=== PATIENT | male | born 1955 | race Caucasian/White ===

== ENCOUNTER 2016-07-26 07:14 | Day surgery (SDC) | payer OTHER ==
[~2016-07-26] VITALS: Ht 177.8 cm; Wt 78.8 kg
[2016-07-26] VITALS (10 sets, daily range): BP systolic 80–134; BP diastolic 44–92; PULSE 56–85; RESP 16–26; Ht 177.8 cm; Wt 78.8 kg
[~2016-07-26 07:14] MED LIST: GLYCOPYRROLATE 0.4 MG INJ ONE; NEOSTIGMINE 3 MG/3 ML SYRINGE ONE
[2016-07-26] MEDS ORDERED: CEFAZOLIN 2 GM/50 ML (PMX) 50 ML IVPB SCH (07:30)
[2016-07-26] MEDS ORDERED: SOD CHLORIDE 0.9% 1,000 ML IV SCH (07:30)
[2016-07-26] MEDS ORDERED: POLYMYXIN/BACITRACIN 1L IRRIG ONE (08:47)
[2016-07-26] MEDS ORDERED: BUPIVACAINE 0.25% (MPF) 30 ML INJ ONE (08:47)
--- NOTE | 2016-07-26 09:33 | RADRPT ---
PROCEDURE: XR Chest. CLINICAL INDICATION: Preoperative chest TECHNIQUE: Chest AP portable. COMPARISON: No comparison available. FINDINGS: The mediastinal structures are unremarkable. The heart is normal in size and configuration. The pu lmonary vascularity is normal. The lung darling are unremarkable. No consolidation is identified. The pleural spaces are unremarkable. The axial skeleton is unremarkable. IMPRESSION: No active intrathoracic disease. RPTAT: [facility] .Gregorio Kahn MD, MD Date Time Electronically viewed and signed by .Gregorio Kahn MD, MD on 07/26/2016 09:33 .B/
[2016-07-26] MEDS ORDERED: FENTAnyl 50 MCG/ML VIAL ONE (09:37)
[2016-07-26] MEDS ORDERED: CEFAZOLIN 1 GM INJ ONE (09:59)
[2016-07-26] MEDS ORDERED: SUCCINYLCHOLINE CHLORIDE 100 MG/5 ML SYG IV ONE (09:59)
[2016-07-26] MEDS ORDERED: LIDOCAINE 2% (SDV) 5 ML INJ ONE (09:59)
[2016-07-26] MEDS ORDERED: PROPOFOL 40 ML ONE (09:59)
[2016-07-26] MEDS ORDERED: ROCURONIUM 50 MG INJ ONE (09:59)
[2016-07-26] MEDS ORDERED: MEPERIDINE 25 MG INJ IV PRN (10:30)
[2016-07-26] MEDS ORDERED: FENTAnyl 50 MCG/ML VIAL IV PRN (10:30)
[2016-07-26] MEDS ORDERED: ONDANSETRON 4 MG INJ IV PRN (10:30)
[2016-07-26] MEDS ORDERED: HYDROmorphONE (0.2 MG/ML) 10ML SYG IV PRN ×3 (10:30)
[2016-07-26] MEDS ORDERED: DIPHENHYDRAMINE 50 MG INJ IV PRN (10:30)
[2016-07-26] MEDS ORDERED: ROPIVACAINE 0.5 % 30 ML VIAL ONE (11:05)
[2016-07-26] MEDS ORDERED: HYDROCODONE/APAP (5/325) TAB PO ONE (11:30)
--- NOTE | 2016-07-26 12:25 | OPR ---
DATE OF OPERATION: 07/26/2016 INDICATION: This is a 60-year-old male with a recurrent right inguinal hernia. He requests surgica l repair. Risks, alternatives, benefits, and personnel were discussed with the patient. The patien t expressed his understanding, and consents to the operation. PREOPERATIVE DIAGNOSIS: Recurrent right inguinal hernia. POSTOPERATIVE DIAGNOSIS: Recurrent incarcerated right inguinal hernia and right hydrocele. OPERATION: Open recurrent incarcerated right inguinal hernia repair with large size Ultrapro hernia system mesh and hydrocelectomy. SURGEON: Gwen Luevano MD SPECIMEN: Frozen right groin tissue. COMPLICATIONS: None. ANESTHESIA: General. DESCRIPTION OF PROCEDURE: The patient was taken to the OR, prepped and draped in the usual sterile fashion. Surgical time out was performed. IV antibiotics were given. Right inguinal oblique incis ion was made with a 10 blade. Dissection cautery was carried down to the external oblique fascia wh ich was opened with a 15 blade. This incision is extended medial inferiorly and lateral superiorly with a Metzenbaum scissors. Cord structures were identified and encircled with a [place] drain. Th ere was a large incarcerated hernia in the right groin. This was reduced into the indirect space. Additionally, the right testicle was examined, looked enlarged. A 22-gauge needle was aspirated and there appeared to be serous fluid. The hydrocele was then first excised by making small grasps of the hydrocele with the hemostats and cutting concurrently all the way down. Serous fluid was aspira malka. The hydrocele sac was then sent for specimen. The hydrocele sac was then marsupialized with i nterrupted 3-0 Vicryl. Some of the tissues appeared very hardened and inflammatory. There was some concern for malignancy. This was sent for frozen which showed that there was only benign reactive tissue. The disk portion of the Ultrapro hernia system mesh was secured to reduce indirect hernia i n place with a running 0 Prolene from the pubic tubercle along the shelving edge of the inguinal lig ament and superiorly to the internal oblique with interrupted 3-0 Vicryl. [place] mesh was also secur ed in a similar fashion from the pubic tubercle along the shelving edge of the inguinal ligament. S traps are created and reapproximated with interrupted 0 Prolene to recreate the inguinal ring. Onla y mesh was secured to the internal oblique with interrupted 3-0 Vicryl. External oblique fascia was closed with a running 3-0 Vicryl. Reta's fascia was closed over with interrupted 3-0 Vicryl. Sk in was closed with interrupted 3-0 Vicryl and running 4-0 Monocryl. Local anesthesia was injected. Dry dressings were applied. Dictated By: GWEN BLOUNT/ELYSSA Conf#: [id number] DID#: [id number]
--- NOTE | 2016-07-28 09:03 | RADRPT ---
Vent Rate: 60 bpm RR Interval: 0 msec [place] Interval: 146 msec QRS Duration: 90 msec QT Interval: 398 msec QTC Interval: 398 msec P-R-T [place]: 55 - 25 - 51 degrees Normal sinus rhythm Normal ECG Electronically Signed By: José Miguel Cook [id number]
== END 2016-07-26 12:50 | disposition home or self-care (01) ==
LOC: SDS 07:14
PROVIDERS: ATTEND Surgery
DX: K40.91 Unilateral inguinal hernia, without obstruction or gangrene, recurrent (principal); N43.3 Hydrocele, unspecified
CPT/HCPCS: 49505; 55040; 71010; 88307; 88331; 93005; C1781; J0330; J0690; J2710; J2795; J3010; Z7512; Z7610; J2175; J2405